=== PATIENT | female | born 1995 | race Caucasian/White ===

== ENCOUNTER 2018-10-08 17:25 | Observation (INO) | payer OTHER ==
[2018-10-08] MEDS ORDERED: IV RINGERS,LACTATED 1000ML 1,000 ML IV SCH (18:18)
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
[2018-10-08] MEDS ORDERED: ACET325T9 PO (19:44)
== END 2018-10-08 20:18 | disposition home or self-care (01) ==
LOC: 3 SO LND 17:25
PROVIDERS: ADMIT Obstetrics & Gynecology; ATTEND Obstetrics & Gynecology
DX: O26.853 Spotting complicating pregnancy, third trimester (principal); O26.893 Other specified pregnancy related conditions, third trimester; O9A.213 Injury, poisoning and certain other consequences of external causes complicating pregnancy, third trimester; R10.9 Unspecified abdominal pain; R10.2 Pelvic and perineal pain; Z3A.38 38 weeks gestation of pregnancy
CPT/HCPCS: 76805; G0378; G0379

== ENCOUNTER 2018-10-12 10:04 | Observation (INO) | payer OTHER ==
[2018-10-08 19:18] VITALS: BP 111/57
[~2018-10-12 10:04] MED LIST: ACET325T9 PO
[2018-10-12] MEDS ORDERED: IV RINGERS,LACTATED 1000ML 1,000 ML IV SCH (10:12)
[2018-10-12] MEDS ORDERED: ACETAMINOPHEN 500 MG TABLET PO ONE (11:00)
== END 2018-10-12 12:30 | disposition home or self-care (01) ==
LOC: 3 SO LND 10:04
PROVIDERS: ADMIT Obstetrics & Gynecology; ATTEND Obstetrics & Gynecology
DX: O26.893 Other specified pregnancy related conditions, third trimester (principal); R10.9 Unspecified abdominal pain; R26.2 Difficulty in walking, not elsewhere classified; M79.605 Pain in left leg; M79.604 Pain in right leg; Z3A.38 38 weeks gestation of pregnancy
CPT/HCPCS: G0378; G0379

== ENCOUNTER 2018-10-17 18:26 | Inpatient (IN) | payer BC, OTHER ==
[~2018-10-17] VITALS: Ht 154.9 cm; Wt 94.8 kg
[2018-10-17] MEDS ORDERED: OXYTOCIN 30 UNIT/500 ML PREMIX 500 ML IV PRN ×4 (18:45→19:45)
[2018-10-17] MEDS ORDERED: fentaNYL PF VIAL 100 MCG/2 ML VIAL IV PRN ×2 (18:45→19:45)
[2018-10-17] MEDS ORDERED: BUTORPHANOL 2 MG/ML VIAL. IV PRN ×2 (18:45)
[2018-10-17] MEDS ORDERED: LIDOCAINE 1% PF 30 ML VIAL. INJ PRN ×2 (18:45→19:45)
[2018-10-17] MEDS ORDERED: TERBUTALINE 1 MG/ML VIAL. SQ PRN ×2 (18:45→19:45)
[2018-10-17] MEDS ORDERED: 0.9 % SODIUM CHLORIDE 10 ML DISP.SYRIN. IV PRN ×2 (18:45→19:45)
[2018-10-17] MEDS ORDERED: IBUPROFEN 400 MG TABLET. PO PRN ×2 (18:45→19:45)
[2018-10-17 19:01] VITALS: BP 113/58
[2018-10-17] MEDS ORDERED: PNV1TABL25 PO (19:01)
[2018-10-17 19:12] LABS: BILIRUBIN,URINE SMALL (NEG); CLARITY,URINE CLEAR; COLOR,URINE AMBER; NITRITE,URINE NEGATIVE (NEG); PROTEIN,URINE 30 mg/dL (NEG-TRACE)
[2018-10-17 19:24] LABS: BARBITURATES NEG (NEG); BENZODIAZEPINES NEG (NEG); CANNABINOIDS POS (NEG); COCAINE NEG (NEG); METHADONE NEG (NEG); OPIATES NEG (NEG); PHENCYCLIDINE NEG (NEG)
[2018-10-17 19:25] LABS: AMPHETAMINE/METHAMPHETAMINE NEG (NEG)
[2018-10-17 19:29] LABS: BACTERIA,URINE FEW /HPF (0-FEW); RBC,URINE 0 /HPF (0-2); SQUAMOUS EPITHELIAL CELL,UR MOD /LPF
[2018-10-17] MEDS: IV RINGERS,LACTATED 1000ML 1,000 ML IV SCH (19:29)
[2018-10-17] MEDS ORDERED: MAG HYDROX/ALUMINUM HYD/SIMETH 30 ML ORAL.SUSP PO PRN (19:45)
[2018-10-17] MEDS ORDERED: ONDANSETRON PF 4 MG/2 ML VIAL. IV PRN (19:45)
[2018-10-17] MEDS ORDERED: DINOPROSTONE 10 MG SUPP.VAG VG ONE (19:45)
[2018-10-17] MEDS ORDERED: IV RINGERS,LACTATED 1000ML 1,000 ML IV PRN (19:45)
[2018-10-17 20:05] LABS: BASO % 0 % (0-3); EOS # 0.1 x10^3/uL (0.0-0.7); EOS % 1 % (0-3); HEMATOCRIT 26.4 % (36.0-47.0); HEMOGLOBIN 8.6 g/dL (12.0-15.5); LYMPH # 1.7 x10^3/uL (1.0-4.8); LYMPH % 17 % (24-48); MEAN CORPUSCULAR HEMOGLOBIN 22 pg (25-35); MEAN CORPUSCULAR HGB CONC 33 g/dL (31-37); MEAN CORPUSCULAR VOLUME 69 fL (79-100); MONO # 0.6 x10^3/uL (0.0-1.1); MONO % 7 % (0-9); NEUT % 74 % (31-73); PLATELET COUNT 300 x10^3/uL (140-400); RED BLOOD COUNT 3.83 x10^6/uL (3.50-5.40); RED CELL DISTRIBUTION WIDTH 16.1 % (11.5-14.5); WHITE BLOOD COUNT 9.5 x10^3/uL (4.0-11.0)
[2018-10-17 20:58] LABS: ANISOCYTOSIS SLIGHT; HYPOCHROMIA MOD; MICROCYTOSIS MOD; PLT ESTIMATE ADEQUATE (ADEQUATE); POLYCHROMASIA SLIGHT; TEAR DROP CELLS OCC
[2018-10-17] MEDS ORDERED: diphenhydrAMINE HCL 25 MG CAPSULE PO PRN (22:45)
[2018-10-18] MEDS: IV RINGERS,LACTATED 1000ML 1,000 ML IV SCH ×2 (04:20→09:00)
[2018-10-18] MEDS: NALBUPHINE 10 MG/ML AMPUL. IV PRN ×2 (08:21→11:35)
--- NOTE | 2018-10-18 12:37 | PDOC1 ---
OB - History Hx of Present Care: Good Care Ultrasounds: Normal mid trimester US Obstetrical Complications: None Medical Complications: None Past Family/Social History * Past Medical, Surgical, Family and Obstetric Histories reviewed from chart. Rubella: Immune RPR/VDRL: Negative GBS Status: Negative HBsAG: Negative OB - Chief Complaint & HPI Date of Admission: Date of Admission: Oct 17, 2018 at 18:26 Chief Complaint/History : 2 Para: 1 EGA: 39 Reason for admission: induction of labor Indication for induction: maternal discomfort Admission Nurse Assessment Rev: Yes OB - Admission Exam Physical Exam Vitals: VS - Last 72 Hours, by Label Date Time Temp Pulse Resp B/P (MAP) Pulse Ox O2 Delivery O2 Flow Rate FiO2 10/18/18 11:35 Room Air 10/18/18 08:21 Room Air 10/18/18 06:11 18 Room Air 10/17/18 19:01 97.6 107 20 113/58 (76) Room Air 97.6 HEENT: Normal Heart: Regular Rate Lungs: Clear Abdomen: Gravid, Non tender, Soft Extremities: Edema Reflexes: Normal Cervical Dilatation: 2cm Effacement: 75% Station: -3 Membranes: Intact Heart Rate: Normal Accelerations: Accelerations Present Decelerations: No decelerations Contractions on Admission: < 5 Minutes Apart Intensity: Moderate Text A: 39 wks IUP IOl secondary maternal discomforts P; Admit labor induction. NIA ASHFORD Jr, MD Oct 18, 2018 12:37
[2018-10-18] MEDS ORDERED: IV RINGERS,LACTATED 1000ML 1,000 ML IV SCH (13:35)
[2018-10-18] MEDS ORDERED: L&D EPIDURAL SYRINGE 50 ML ONE (13:37)
[2018-10-18] MEDS ORDERED: ROPIVacaine 0.2% IN 0.9%NACL PF 40 MG/20 ML DISP.SYRIN. ONE ×3 (13:37→19:06)
[2018-10-18] MEDS ORDERED: ROPIVacaine 0.2% IN 0.9%NACL PF 40 MG/20 ML DISP.SYRIN. EPID PRN (13:45)
[2018-10-18] MEDS ORDERED: NALOXONE 0.4 MG/ML VIAL. IV PRN (13:45)
[2018-10-18] MEDS ORDERED: L&D EPIDURAL SYRINGE 50 ML EPID PRN (13:45)
[2018-10-18] MEDS ORDERED: L&D EPIDURAL 50 ML SYRINGE. ONE (14:00)
--- NOTE | 2018-10-18 20:38 | PDOC ---
VAGINAL DELIVERY DATE DATE: 10/18/18 TIME: 20:34 : 2 Para: 1 EGA: 39 VAGINAL DELIVERY: VTX VACCUM ASSISTED: No PLACENTA: Spontaneous SEX: Male WEIGHT Weight [6 lbs. 2 oz ] Nuchal Cord: No Amniotic Fluid: Clear PAIN: Epidural EPISIOTOMY: No EXTENSION: No EBL 300 ml COMPLICATIONS none CONDITION pt. stable Signs of Intrauterine Infectio: None Shoulder Dystocia: No NIA ASHFORD Jr, MD Oct 18, 2018 20:38
[2018-10-18] MEDS ORDERED: oxyCODONE/APAP 5/325 1 TAB TABLET PO PRN (20:45)
[2018-10-18] MEDS ORDERED: MMR per PROTOCOL. MC PRN (20:45)
[2018-10-18] MEDS ORDERED: 0.9 % SODIUM CHLORIDE 10 ML DISP.SYRIN. IV PRN (20:45)
[2018-10-18] MEDS ORDERED: PHENYLEPH/MINERAL OIL/PETROLAT RECTAL OINTMENT 28GM TUBE. RC PRN (20:45)
[2018-10-18] MEDS ORDERED: ZOLPIDEM 5 MG TABLET. PO PRN (20:45)
[2018-10-18] MEDS ORDERED: ACETAMINOPHEN 325 MG TABLET. PO PRN (20:45)
[2018-10-18] MEDS ORDERED: diphenhydrAMINE HCL 25 MG CAPSULE PO PRN (20:45)
[2018-10-18] MEDS ORDERED: SIMETHICONE 80 MG TAB.CHEW PO PRN (20:45)
[2018-10-18] MEDS ORDERED: MAG HYDROX/ALUMINUM HYD/SIMETH 30 ML ORAL.SUSP PO PRN (20:45)
[2018-10-18] MEDS ORDERED: BENZOCAINE 20% TOPICAL AEROSOL SPRAY 57GM CAN. TP PRN (20:45)
[2018-10-18] MEDS ORDERED: HYDROCORTISONE 1% TOPICAL OINTMENT 30GM TUBE. TP PRN (20:45)
[2018-10-18] MEDS ORDERED: MAGNESIUM HYDROXIDE 2,400 MG/30 ML ORAL.SUSP. PO PRN (20:45)
[2018-10-18] MEDS ORDERED: OXYTOCIN 30 UNIT/500 ML PREMIX 500 ML IV PRN (20:45)
[2018-10-18] MEDS ORDERED: DOCUSATE SODIUM 100 MG CAPSULE. PO PRN (20:45)
[2018-10-18] MEDS ORDERED: IBUPROFEN 400 MG TABLET. PO PRN (20:45)
[2018-10-19 06:03] VITALS: BP 93/50
[2018-10-19] MEDS ORDERED: FERROUS SULFATE 325 MG TABLET. PO SCH (08:00)
--- NOTE | 2018-10-19 08:38 | PDOC3 ---
OB DISCHARGE SUMMARY DATE OF ADMISSION: 10/17/18 DATE OF DISCHARGE: 10/19/18 REASON FOR ADMISSION: Induction of labor INTRAPARTUM PROCEDURES: Spontanous Vag Deliv DISCHARGE DIAGNOSIS: Term Delivered DISCHARGE INFORMATION: Activity (ad filemon), Diet (regular), Instructions (pelvic rest x 6 wks) HOSPITAL COURSE Term gestation delivered vaginally without complications. Infant transferred due to pneumothorax. NIA ASHFORD Jr, MD Oct 19, 2018 08:38
--- NOTE | 2018-10-19 08:39 | DISCH ---
DISCHARGE INSTRUCTIONS Condition on Discharge Condition on Discharge: Stable Activity After Discharge Activity Instructions for Disc: Activity as tolerated Lifting Instructions after Dis: No heavy lifting Driving Instructions after Dis: Do not drive today Diet after Discharge Diet after Discharge: Regular Contacting the DRMaruo after DC Call your doctor for: Concerns you may have Follow-Up Follow up with: Dr. Hooper in 6 wks NIA HOOPER Jr, MD Oct 19, 2018 08:38
[2018-10-19] MEDS ORDERED: IBUP-1027 PO (08:40)
[2018-10-19 09:15] VITALS: BP 105/57
[2018-10-19 09:42] LABS: BASO # 0.1 x10^3/uL (0.0-0.2); BASO % 1 % (0-3); EOS # 0.2 x10^3/uL (0.0-0.7); EOS % 2 % (0-3); HEMATOCRIT 29.6 % (36.0-47.0); HEMOGLOBIN 9.5 g/dL (12.0-15.5); LYMPH # 1.6 x10^3/uL (1.0-4.8); LYMPH % 17 % (24-48); MEAN CORPUSCULAR HEMOGLOBIN 22 pg (25-35); MEAN CORPUSCULAR HGB CONC 32 g/dL (31-37); MEAN CORPUSCULAR VOLUME 69 fL (79-100); MONO # 0.6 x10^3/uL (0.0-1.1); MONO % 7 % (0-9); NEUT % 73 % (31-73); PLATELET COUNT 288 x10^3/uL (140-400); RED CELL DISTRIBUTION WIDTH 16.5 % (11.5-14.5); WHITE BLOOD COUNT 9.6 x10^3/uL (4.0-11.0)
--- NOTE | 2018-10-19 09:55 | NUR ---
Discharge Discharge instructions given to patient and father of baby, no questions or concerns noted. To follow up with Dr Hooper in 6 weeks. patient to shower then to leave unit to be with baby. will monitor.
[2018-10-19] MEDS ORDERED: IBUPROFEN 400 MG TABLET. PO PRN (10:00)
[2018-10-19] MEDS ORDERED: MAGNESIUM HYDROXIDE 2,400 MG/30 ML ORAL.SUSP. PO PRN (10:00)
[2018-10-19 10:45] LABS: % LYMPHS 12 % (24-48); % MONOS 6 % (0-10); % SEGS 82 % (35-66); HYPOCHROMIA MOD
[2018-10-19 10:46] LABS: PLT ESTIMATE ADEQUATE (ADEQUATE); SPHEROCYTES OCC
== END 2018-10-19 11:57 | disposition home or self-care (01) | DRG 807 ==
LOC: 3 SO LND 18:26 → 3 NORTH 10-18 22:45
PROVIDERS: ADMIT Obstetrics & Gynecology; ATTEND Obstetrics & Gynecology
PROC: 10E0XZZ Delivery of Products of Conception, External Approach (ICD-10-PCS; principal; 2018-10-18)
PROC: 3E0R3BZ Introduction of Anesthetic Agent into Spinal Canal, Percutaneous Approach (ICD-10-PCS; 2018-10-18)
PROC: 00HU33Z Insertion of Infusion Device into Spinal Canal, Percutaneous Approach (ICD-10-PCS; 2018-10-18)
PROC: 10907ZC Drainage of Amniotic Fluid, Therapeutic from Products of Conception, Via Natural or Artificial Opening (ICD-10-PCS; 2018-10-18)
PROC: 3E033VJ Introduction of Other Hormone into Peripheral Vein, Percutaneous Approach (ICD-10-PCS; 2018-10-18)
PROC: 3E0P7VZ Introduction of Hormone into Female Reproductive, Via Natural or Artificial Opening (ICD-10-PCS; 2018-10-18)
DX: O99.89 Other specified diseases and conditions complicating pregnancy, childbirth and the puerperium (principal); Z37.0 Single live birth; Z3A.39 39 weeks gestation of pregnancy; Z88.8 Allergy status to other drugs, medicaments and biological substances; Z87.891 Personal history of nicotine dependence
CPT/HCPCS: 36415; 80307; 81001; 85007; 85025; 86592; 86850; 86900; 86901; 87086; J2300; J2405; J2590; J2795; J3010; J7120; Q0163; G0378

== ENCOUNTER 2018-11-08 09:05 | Emergency (ER) | payer OTHER ==
[~2018-11-08] VITALS: Ht 154.9 cm; Wt 81.6 kg
[~2018-11-08 09:05] MED LIST changes: +IBUP-1027 PO; +PNV1TABL25 PO
--- NOTE | 2018-11-08 09:32 | PHYS DOC ---
Past Medical History Past Medical History: Anxiety Past Surgical History: No Surgical History Alcohol Use: None Drug Use: Marijuana Adult General Chief Complaint Chief Complaint: BREAST PROBLEM HPI HPI Patient is a 23 year old female who presents with is currently breast feeding her having left-sided breast tenderness and fever. Patient rates her pain 8 out of 10. States she took Tylenol at 4:00 this morning. Patient states this all started on Thursday. Review of Systems Review of Systems Constitutional: fever or chills [] Eyes: Denies change in visual acuity, redness, or eye pain [] HENT: Denies nasal congestion or sore throat [] Respiratory: Denies cough or shortness of breath [] Cardiovascular: No additional information not addressed in HPI [] GI: Denies abdominal pain, nausea, vomiting, bloody stools or diarrhea [] : Denies dysuria or hematuria [] Musculoskeletal: Denies back pain or joint pain [] Integument: Left Breast tenderness. Denies rash or skin lesions [] Neurologic: Denies headache, focal weakness or sensory changes [] All other systems were reviewed and found to be within normal limits, except as documented in this note. Allergies Allergies Allergies Coded Allergies Type Severity Reaction Last Updated Verified strawberry Allergy Intermediate Hives 10/17/18 Yes Physical Exam Physical Exam Constitutional: Well developed, well nourished, no acute distress, non-toxic appearance. [] HENT: Normocephalic, atraumatic, bilateral external ears normal, oropharynx moist, no oral exudates, nose normal. [] Eyes: PERRLA, EOMI, conjunctiva normal, no discharge. [] Neck: Normal range of motion, no tenderness, supple, no stridor. [] Cardiovascular:Heart rate regular rhythm, no murmur [] Lungs & Thorax: Bilateral breath sounds clear to auscultation [] Abdomen: Bowel sounds normal, soft, no tenderness, no masses, no pulsatile masses. [] Skin: Left breast tenderness, without redness or lump felt or seen. Warm, dry, no erythema, no rash. [] Back: No tenderness, no CVA tenderness. [] Extremities: No tenderness, no cyanosis, no clubbing, ROM intact, no edema. [] Neurologic: Alert and oriented X 3, normal motor function, normal sensory function, no focal deficits noted. [] Psychologic: Affect normal, judgement normal, mood normal. [] Current Patient Data Vital Signs Vital Signs Date Time Temp Pulse Resp B/P (MAP) Pulse Ox O2 Delivery O2 Flow Rate FiO2 11/08/18 09:18 98.6 79 16 112/54 (73) 99 Room Air 98.6 EKG EKG [] Radiology/Procedures Radiology/Procedures US Breast Impressions: [facility] [address] [place] [address] IMAGING REPORT Signed PATIENT: SALMA FARNSWORTH ACCOUNT: [id number] : 1995 LOCATION: ER AGE: 23 SEX: F EXAM STATUS: REG ER ORD. PHYSICIAN: JENNY SARKAR APRN REASON: possible mastitis with PROCEDURE: BREAST LEFT INDICATION: 23 year-old female presents with left breast pain. The patient is lactating, recently . TECHNIQUE: Targeted high resolution sonography of the region of clinical concern was performed. Particular attention was placed from the 10:00-12:00 position of the left breast at the site of the majority of the pain. COMPARISON: None FINDINGS: Sonographic evaluation of the area of focal demonstrates unremarkable fibroglandular tissue without evidence for suspicious cystic or solid mass. No loculated fluid collection is seen. IMPRESSION: No discrete drainable fluid collection is seen. RECOMMENDATION: No discrete left breast fluid collection is seen. The patient's focal breast complaint should be further managed clinically. BI-RADS 1: Negative The patient should start annual screening examination at age 40 as per current guidelines. Electronically signed by: Nicholas Zambrano MD (11/08/2018 9:56 AM) [facility] DICTATED and SIGNED BY: NICHOLAS ZAMBRANO MD DATE: 11/08/18 0953 Course & Med Decision Making Course & Med Decision Making Patient is a 23 year old female who presents with is currently breast feeding her infant having left-sided breast tenderness and fever. Patient rates her pain 8 out of 10. States she took Tylenol at 4:00 this morning. Patient states this all started on Thursday. Alert and oriented. Skin pink warm and dry. PERRLA. Mucous membranes moist. Denies nausea vomiting diarrhea. Afebrile the ED. Vital signs are within normal limits. Left breast is tender to palpation to the outer breast and to approximately 11:00 to the breast. There is no lumps or redness or warmth felt or seen. Patient states she does not have any unusual nipple discharge other than breast milk. Patient states she is unable to breath on this breast the child will not latch on. Patient states she called Dr. Hooper knee stated to come to the emergency room. Rates Regular without murmur. Lungs are Clear to auscultation. Breast US shows Sonographic evaluation of the area of focal demonstrates unremarkable fibroglandular tissue without evidence for suspicious cystic or solid mass. No loculated fluid collection is seen. Patient to be treated for mastitis and to follow up with Dr Hooper. Patient to continue taking Tylenol for pain. Dragon Disclaimer Dragon Disclaimer This electronic medical record was generated, in whole or in part, using a voice recognition dictation system. Departure Departure Impression: Primary Impression: Mastitis Disposition: 01 HOME, SELF-CARE Condition: STABLE Referrals: NO PCP (PCP) Patient Instructions: , Mastitis Additional Instructions: Continue to pump or try to breast feed. Use warm compresses. Call Dr Hooper for follow up appointment. Scripts Cephalexin (KEFLEX) 500 Mg Capsule 2 CAP PO BID for 7 Days, #28 CAP Prov: JENNY SARKAR APRN 11/08/18 JENNY SARKAR APRN Nov 08, 2018 09:32
--- NOTE | 2018-11-08 09:59 | RAD ---
INDICATION: 23 year-old female presents with left breast pain. The patient is lactating, recently . TECHNIQUE: Targeted high resolution sonography of the region of clinical concern was performed. Particular attention was placed from the 10:00-12:00 position of the left breast at the site of the majority of the pain. COMPARISON: None FINDINGS: Sonographic evaluation of the area of focal demonstrates unremarkable fibroglandular tissue without evidence for suspicious cystic or solid mass. No loculated fluid collection is seen. IMPRESSION: No discrete drainable fluid collection is seen. RECOMMENDATION: No discrete left breast fluid collection is seen. The patient's focal breast complaint should be further managed clinically. BI-RADS 1: Negative The patient should start annual screening examination at age 40 as per current guidelines. Electronically signed by: Nicholas Hinton MD (11/08/2018 9:56 AM) [facility]
[2018-11-08] MEDS ORDERED: CEPH-264 PO ×2 (10:23→10:28)
[2018-11-08 10:39] VITALS: BP 113/70
== END 2018-11-08 10:39 | disposition home or self-care (01) ==
LOC: ER 09:05
DX: N61.0 Mastitis without abscess (principal); R50.9 Fever, unspecified; Z91.018 Allergy to other foods
CPT/HCPCS: 76641; 99284-25

== ENCOUNTER 2018-12-26 19:29 | Emergency (ER) | payer OTHER ==
[~2018-12-26] VITALS: Ht 154.9 cm; Wt 81.6 kg
[~2018-12-26 19:29] MED LIST changes: +CEPH-264 PO
[2018-12-26 20:06] VITALS: BP 123/85
[2018-12-26 20:27] LABS: BILIRUBIN,URINE NEGATIVE (NEG); CLARITY,URINE CLEAR; COLOR,URINE YELLOW; NITRITE,URINE NEGATIVE (NEG); PROTEIN,URINE NEGATIVE (NEG-TRACE)
--- NOTE | 2018-12-26 20:28 | PHYS DOC ---
Past Medical History Past Medical History: No Pertinent History, Anxiety (DON SANCHEZ APRN) Past Surgical History: Tonsillectomy (DON SANCHEZ APRN) Alcohol Use: None Drug Use: Marijuana (DON SANCHEZ APRN) Adult General Chief Complaint Chief Complaint: SORE THROAT HPI HPI Patient is a 23 year old female with history of anxiety who presents to the ED today complaining of a sore throat and nausea that began this morning. Patient is in the ED with the son was 2 months old with upper respiratory infection symptoms, the was also in the ED a couple days ago with similar symptoms. Patient denies any diarrhea, abdominal pain. She states she could be though she is currently breast-feeding. She states she's not had a cycle since she delivered the baby 2 months ago. (DON SANCHEZ APRN) Review of Systems Review of Systems Constitutional: Denies fever or chills [] Eyes: Denies change in visual acuity, redness, or eye pain [] HENT: Reports sore throat. Denies nasal congestion Respiratory: Denies cough or shortness of breath [] Cardiovascular: No additional information not addressed in HPI [] GI: Reports nausea. Denies abdominal pain, vomiting, bloody stools or diarrhea [ ] : Denies dysuria or hematuria [] Musculoskeletal: Denies back pain or joint pain [] Integument: Denies rash or skin lesions [] Neurologic: Denies headache, focal weakness or sensory changes [] All other systems were reviewed and found to be within normal limits, except as documented in this note. (DON SANCHEZ APRN) Allergies Allergies Allergies Coded Allergies Type Severity Reaction Last Updated Verified strawberry Allergy Intermediate Hives 10/17/18 Yes (LINDA LUTZ MD) Physical Exam Physical Exam Constitutional: Well developed, well nourished, no acute distress, non-toxic appearance. [] HENT: Normocephalic, atraumatic, bilateral external ears normal, oropharynx moist, no oral exudates, nose normal. [] Eyes: PERRLA, EOMI, conjunctiva normal, no discharge. [] Neck: Normal range of motion, no tenderness, supple, no stridor. [] Cardiovascular:Heart rate regular rhythm, no murmur [] Lungs & Thorax: Bilateral breath sounds clear to auscultation [] Abdomen: Bowel sounds normal, soft, no tenderness, no masses, no pulsatile masses. [] Skin: Warm, dry, no erythema, no rash. [] Back: No tenderness, no CVA tenderness. [] Extremities: No tenderness, no cyanosis, no clubbing, ROM intact, no edema. [] Neurologic: Alert and oriented X 3, normal motor function, normal sensory function, no focal deficits noted. [] Psychologic: Affect normal, judgement normal, mood normal. [] (DON SANCHEZ APRN) Current Patient Data Vital Signs Vital Signs Date Time Temp Pulse Resp B/P (MAP) Pulse Ox O2 Delivery O2 Flow Rate FiO2 12/26/18 20:06 98.8 89 16 123/85 (98) 98 Room Air 98.8 (LINDA LUTZ MD) Lab Values Laboratory Tests Test 12/26/18 20:00 12/26/18 20:18 Urine Collection Type Unknown Urine Color Yellow Urine Clarity Clear Urine pH 6.0 Urine Specific [place] 1.025 Urine Protein Negative mg/dL (NEG-TRACE) Urine Glucose (UA) Negative mg/dL (NEG) Urine Ketones (Stick) Negative mg/dL (NEG) Urine Blood Negative (NEG) Urine Nitrite Negative (NEG) Urine Bilirubin Negative (NEG) Urine Urobilinogen Dipstick 1.0 mg/dL (0.2 mg/dL) Urine Leukocyte Esterase Small (NEG) Urine RBC 0 /HPF (0-2) Urine WBC 5-10 /HPF (0-4) Urine Squamous Epithelial Cells Mod /LPF Urine Bacteria Moderate /HPF (0-FEW) Urine Mucus Mod /LPF POC Urine HCG, Qualitative Hcg negative (Negative) (LINDA LUTZ MD) EKG EKG [] (DON SANCHEZ APRN) Radiology/Procedures Radiology/Procedures [] (DON SANCHEZ APRN) Course & Med Decision Making Course & Med Decision Making Pertinent Labs and Imaging studies reviewed. (See chart for details) This is a 23-year-old female patient presenting to the ED today with complaints of sore throat and nausea. Also concerned she could be though she is breast-feeding right now. She had a baby 2 months ago. Negative urine hCG. Physical exam of the throat is negative, there is no redness, there is no swelling. Off note patient is in the ED with the son with similar symptoms as well as the who was seen a couple days ago for similar symptoms. Negative urine hCG, urine analysis appears contaminated with squamous cell epithelium. Patient was discharged with Zofran, sore throat that was recommended. Tylenol /Motrin for pain or fever. Follow-up with PCP in 1-2 weeks. (DON SANCHEZ APRN) Course & Med Decision Making Staff Physician Addendum: I was working in the ER during the course of this patient's visit. I was available for consultation as needed, but I was not directly involved in the care of this patient. (LINDA LUTZ MD) Dragon Disclaimer Dragon Disclaimer This electronic medical record was generated, in whole or in part, using a voice recognition dictation system. (DON SANCHEZ APRN) Departure Departure Impression: Primary Impression: Acute viral pharyngitis Additional Impression: Nausea Disposition: 01 HOME, SELF-CARE Condition: STABLE Referrals: NO PCP (PCP) follow up in 1 week with your doctor Patient Instructions: Nausea, Adult, [id number], Viral Pharyngitis Additional Instructions: You were evaluated in the emergency with symptoms consistent of viral illness. Please take Tylenol or Motrin for pain or fever. Use saltwater gargles as well for the sore throat. Take Zofran as needed for nausea. Follow-up with your own doctor in 1-2 weeks. Scripts Ondansetron Hcl (ZOFRAN) 4 Mg Tablet 1 TAB PO Q6HRS, #20 TAB Prov: DON SANCHEZ APRN 12/26/18 Problem Qualifiers DON SANCHEZ APRN Dec 26, 2018 20:28 LINDA LUTZ MD Dec 27, 2018 05:48
[2018-12-26 20:32] LABS: BACTERIA,URINE MODERATE /HPF (0-FEW); RBC,URINE 0 /HPF (0-2); SQUAMOUS EPITHELIAL CELL,UR MOD /LPF
[2018-12-26] MEDS ORDERED: ONDA4TAB7 PO (20:39)
== END 2018-12-26 20:52 | disposition home or self-care (01) ==
LOC: ER 19:29
DX: J02.8 Acute pharyngitis due to other specified organisms (principal); B97.89 Other viral agents as the cause of diseases classified elsewhere; R11.0 Nausea; F41.9 Anxiety disorder, unspecified; Z90.89 Acquired absence of other organs; Z91.018 Allergy to other foods
CPT/HCPCS: 81001; 81025; 87086; 99284

== ENCOUNTER 2018-12-29 11:14 | Emergency (ER) | payer OTHER ==
[~2018-12-29] VITALS: Ht 154.9 cm; Wt 77.1 kg
[~2018-12-29 11:14] MED LIST changes: +ONDA4TAB7 PO
[2018-12-29 11:48] VITALS: BP 143/80
== END 2018-12-29 13:20 | disposition left against medical advice (07) ==
LOC: ER 11:14
DX: R07.9 Chest pain, unspecified (principal); R09.81 Nasal congestion; Z53.21 Procedure and treatment not carried out due to patient leaving prior to being seen by health care provider